=== PATIENT | female | born 1990 | race Two or more races ===

== ENCOUNTER 2018-08-30 15:39 | Emergency (ER) | payer OTHER ==
[~2018-08-30] VITALS: Ht 154.9 cm; Wt 57.6 kg
[~2018-08-30 15:39] MED LIST: ADDERALL 15 MG15 MG PO; CLONAZEPAM1 MG PO; ORTHO TRI-CYCL1 EAC1 PO
== END 2018-08-30 18:15 | disposition home or self-care (01) ==
LOC: ER 15:39
DX: R00.2 Palpitations (principal); F06.4 Anxiety disorder due to known physiological condition

== ENCOUNTER → 2018-10-26 | Emergency (ER) | payer OTHER ==
[~2018-10-26] VITALS: Ht 154.9 cm; Wt 57.6 kg
[~2018-10-26] MED LIST changes: +ALPRAZOLAM OD0.25 MG
== END | disposition left against medical advice (07) ==
LOC: ER 23:08
DX: Z53.20 Procedure and treatment not carried out because of patient's decision for unspecified reasons (principal)

== ENCOUNTER 2020-03-12 10:15 | Inpatient (IN) | payer OTHER ==
[~2020-03-12] VITALS: Wt 2.7 kg
[2020-04-03] MEDS ORDERED: PRENATAL CAPLE1 EAC1 PO (07:14)
[2020-04-06] MEDS ORDERED: OXYC1TAB9 PO (10:38)
== END 2020-04-06 11:56 | disposition home or self-care (01) | DRG 788 ==
LOC: SURH 03-30 10:15 → LDR 04-03 04:58 → SURG-SUITE 04-03 04:58 → O/R 04-03 17:48 → SURG-SUITE 04-03 18:28
PROVIDERS: ADMIT Obstetrics & Gynecology; ATTEND Obstetrics & Gynecology
PROC: 3E033VJ Introduction of Other Hormone into Peripheral Vein, Percutaneous Approach (ICD-10-PCS; 2020-04-03)
PROC: 4A1HXFZ Monitoring of Products of Conception, Cardiac Rhythm, External Approach (ICD-10-PCS; 2020-04-03)
PROC: 10D00Z1 Extraction of Products of Conception, Low, Open Approach (ICD-10-PCS; principal; 2020-04-03 16:00)
DX: O33.9 Maternal care for disproportion, unspecified (principal); O61.0 Failed medical induction of labor; O99.824 Streptococcus B carrier state complicating childbirth; Z3A.40 40 weeks gestation of pregnancy; Z37.0 Single live birth; Z20.822 Contact with and (suspected) exposure to COVID-19

== ENCOUNTER 2020-03-19 09:20 | Outpatient (CLI) | payer OTHER | END 2020-03-19 10:02 | disposition home or self-care (01) | LOC: NST 09:20 | PROVIDERS: ATTEND Obstetrics & Gynecology Maternal & Fetal Medicine | DX: Z34.83 Encounter for supervision of other normal pregnancy, third trimester (principal) ==

== ENCOUNTER 2020-03-29 10:42 | Outpatient (CLI) | payer OTHER | END 2020-03-29 11:33 | disposition home or self-care (01) | LOC: NST 10:42 | PROVIDERS: ATTEND Obstetrics & Gynecology | DX: Z34.83 Encounter for supervision of other normal pregnancy, third trimester (principal) ==

== ENCOUNTER → 2020-03-30 | Outpatient (CLI) | payer OTHER ==
[~2020-03-30] MED LIST changes: +PRENATAL CAPLE1 EAC1 PO
== END | disposition home or self-care (01) ==
LOC: NST 19:42
PROVIDERS: ATTEND Obstetrics & Gynecology
DX: Z34.83 Encounter for supervision of other normal pregnancy, third trimester (principal)

== ENCOUNTER 2023-08-31 11:45 | Inpatient (IN) | payer OTHER ==
[~2023-08-31] VITALS: Ht 154.9 cm; Wt 81.6 kg
[~2023-08-31 11:45] MED LIST changes: +OXYC1TAB9 PO
[2023-08-31 13:52] LABS: HEMATOCRIT 36.8 % (36.0-45.00); HEMOGLOBIN 12.4 g/dL (12.0-15.00); MEAN CELL VOLUME 83.3 fL (80.00-100.00); MEAN CORPUSCULAR HEMOGLOBIN 28.1 pg (27.00-32.0); MEAN CORPUSCULAR HGB CONC 33.8 g/dl (32.0-36.0); PLATELET COUNT 242 K/uL (150-450); RED BLOOD COUNT 4.42 M/uL (4.00-6.00); RED CELL DISTRIBUTION WIDTH 14.5 % (11.5-14.5)
[2023-08-31 14:22] LABS: INR 0.94; PARTIAL THROMBOPLASTIN TIME 26.7 SECONDS (22.0-34.0); PROTHROMBIN TIME 9.9 SECONDS (9.0-11.5)
[2023-08-31 14:27] LABS: ALBUMIN 2.8 gm/dL (3.4-5.0); BILIRUBIN TOTAL 0.36 mg/dL (0.3-1.2); CALCIUM 9.5 mg/dL (8.5-10.1); CREATININE SERUM 0.85 mg/dL (0.55-1.02); GFR 76.56; GLOBULINA 3.8 G/DL (2.4-3.5); POTASSIUM 4.09 mEq/L (3.5-5.1); TOTAL PROTEIN 6.6 gm/dL (6.4-8.2)
[2023-09-14] MEDS ORDERED: ZYRTEC10 MG PO (12:59)
[2023-09-14] MEDS ORDERED: RINGERS SOLUTION,LACTATED 1,000 ML IV SCH (13:30)
[2023-09-14] MEDS ORDERED: CITRIC ACID/SODIUM CITRATE 30 ML BLIST.PACK PO STA (16:32)
[2023-09-14] MEDS ORDERED: CEFOXITIN SODIUM 2,000 MG VIAL IV STA (16:32)
[2023-09-14] MEDS ORDERED: MEPERIDINE HCL/PF 50 MG/ML VIAL IV SCH (18:23)
[2023-09-14] MEDS ORDERED: PROMETHAZINE HCL 25 MG/ML AMPUL IV SCH (18:24)
[2023-09-14] MEDS ORDERED: OXYTOCIN 1,000 ML IV NR (18:30)
[2023-09-14] MEDS ORDERED: ERYTHROMYCIN BASE 1 GM TUBE OP ONE (19:30)
[2023-09-14] MEDS ORDERED: OXYTOCIN 10 UNITS/ML VIAL IV ONE (19:30)
[2023-09-14 20:07] LABS: ABG PH 7.271 (7.35-7.45); ABG PO2 17.3 mmHg (80-100); ABG pCO2 48.9 mmHg (35-45); BASE EXCESS -5.1 mmol/l; SaO2 18.4 %; Tco2 23.5 mmol/l; o2 21 %
[2023-09-15] MEDS ORDERED: ACETAMINOPHEN 500 MG GEL..CAP PO SCH (06:00)
[2023-09-15 06:55] LABS: HEMATOCRIT 36.5 % (36.0-45.00); HEMOGLOBIN 12.5 g/dL (12.0-15.00); MEAN CELL VOLUME 81.3 fL (80.00-100.00); MEAN CORPUSCULAR HEMOGLOBIN 27.9 pg (27.00-32.0); MEAN CORPUSCULAR HGB CONC 34.3 g/dl (32.0-36.0); PLATELET COUNT 183 K/uL (150-450); RED BLOOD COUNT 4.49 M/uL (4.00-6.00); RED CELL DISTRIBUTION WIDTH 14.9 % (11.5-14.5)
[2023-09-15] MEDS ORDERED: DOCUSATE SODIUM 100MG CAP PO SCH (09:00)
[2023-09-15] MEDS ORDERED: PNV,CALCIUM 72/IRON/FOLIC ACID 1 TAB TABLET PO SCH (09:00)
[2023-09-15] MEDS ORDERED: GABAPENTIN 300 MG CAPSULE PO SCH (09:00)
[2023-09-15] MEDS ORDERED: SIMETHICONE 125 MG CAPSULE PO SCH (09:00)
[2023-09-15] MEDS ORDERED: FF) RHO(D) IMMUNE GLOBULIN (POM) IM NR (10:30)
[2023-09-15] MEDS ORDERED: OxyCODONE HCL/APAP UD (PERCOCET) PO PRN (11:45)
== END 2023-09-16 17:23 | disposition home or self-care (01) | DRG 788 ==
LOC: OB/GYN 09-14 12:50 → LDR 09-14 12:50 → O/R 09-14 17:26 → OB/GYN 09-14 18:19
PROVIDERS: Obstetrics & Gynecology Gynecology; ADMIT Obstetrics & Gynecology; ATTEND Obstetrics & Gynecology
PROC: 4A1HXCZ Monitoring of Products of Conception, Cardiac Rate, External Approach (ICD-10-PCS; 2023-09-14)
PROC: 10D00Z1 Extraction of Products of Conception, Low, Open Approach (ICD-10-PCS; principal; 2023-09-14 18:00)
DX: O34.211 Maternal care for low transverse scar from previous cesarean delivery (principal); Z3A.39 39 weeks gestation of pregnancy; Z37.0 Single live birth; Z20.822 Contact with and (suspected) exposure to COVID-19

== ENCOUNTER 2023-09-14 09:49 | Outpatient (CLI) | payer OTHER ==
[2023-09-14] MEDS ORDERED: ZYRTEC10 MG PO (12:59)
== END 2023-09-14 12:53 | disposition still patient (30) ==
LOC: NST 09:49
PROVIDERS: ATTEND Obstetrics & Gynecology Gynecology
DX: Z34.83 Encounter for supervision of other normal pregnancy, third trimester (principal)